=== PATIENT | female | born 1985 | race Caucasian/White ===

== ENCOUNTER → 2019-09-01 | Outpatient (CLI) | payer OTHER ==
[~2019-09-01] MED LIST: CEPH500 PO; MUPI2TC TOP; SULTRIDS PO
== END | disposition home or self-care (01) ==
LOC: LAB 13:11 → LAB SHORT 13:11
DX: Z32.01 Encounter for pregnancy test, result positive (principal)
CPT/HCPCS: 84702

== ENCOUNTER 2020-05-04 21:02 | Inpatient (IN) | payer OTHER ==
[~2020-05-04] VITALS: Ht 154.9 cm; Wt 57.0 kg
[2020-05-04] MEDS ORDERED: PRENATAL TABLE1 EAC2 PO (21:26)
[2020-05-04 21:30] LABS: BASOPHILS ABSOLUTE AUTO 0.03 K/mm3 (0.00-0.23); BASOPHILS PERCENT AUTO 0 % (0-2); EOSINOPHILS ABSOLUTE AUTO 0.05 K/mm3 (0.00-0.68); EOSINOPHILS PERCENT AUTO 1 % (0-6); Hemoglobin 12.6 g/dL (11.5-16.0); IMMATURE GRAN ABSOLUTE AUTO 0.05 K/mm3 (0.00-0.10); IMMATURE GRAN PERCENT AUTO 1 % (0-1); LYMPHOCYTES PERCENT AUTO 22 % (21-46); MONOCYTES ABSOLUTE AUTO 0.66 K/mm3 (0.16-1.47); MONOCYTES PERCENT AUTO 7 % (4-13); Mean Corpuscular HGB Conc 33.2 g/dL (31.5-36.5); Mean Corpuscular Volume 94 fL (80-100); Mean Platelet Volume 10.4 fL (9.1-12.4); NEUTROPHILS ABSOLUTE AUTO 6.87 K/mm3 (1.96-9.15); NEUTROPHILS PERCENT AUTO 70 % (41-73); Platelet Count 247 K/mm3 (150-400); RDW Coefficient Variation 12.7 % (11.7-14.2); Red Blood Cell Count 4.06 M/mm3 (3.80-5.20); White Blood Cell Count 9.86 K/mm3 (4.00-11.30)
--- NOTE | 2020-05-05 15:16 | NUR ---
05/05/20 1516 Laine Magana DELIVERY OF VIABLE FEMALE INFANT T 1502. APGARS 9/9. WEIGHT 2525 GMS. CORD SEGMENT SENT WITH RT FOR GASSES. CORD BLOOD SAMPLE SENT WITH BABY'S RN FOR BLOOD TYPE.
[2020-05-05 15:21] LABS: PO2 Cord - Arterial 20.6 mmHg (16-20); pH Cord - Arterial 7.26 (7.28-7.35)
[2020-05-05 15:23] LABS: PCO2 Cord - Venous 47.3 mmHg (40-50); pH Umbilical Cord - Venous 7.28 (7.26-7.35)
[2020-05-06 05:55] LABS: BASOPHILS ABSOLUTE AUTO 0.03 K/mm3 (0.00-0.23); BASOPHILS PERCENT AUTO 0 % (0-2); EOSINOPHILS ABSOLUTE AUTO 0.05 K/mm3 (0.00-0.68); EOSINOPHILS PERCENT AUTO 0 % (0-6); Hematocrit 23.8 % (33.0-51.0); Hemoglobin 7.8 g/dL (11.5-16.0); IMMATURE GRAN ABSOLUTE AUTO 0.05 K/mm3 (0.00-0.10); IMMATURE GRAN PERCENT AUTO 0 % (0-1); LYMPHOCYTES PERCENT AUTO 14 % (21-46); MONOCYTES ABSOLUTE AUTO 0.72 K/mm3 (0.16-1.47); MONOCYTES PERCENT AUTO 6 % (4-13); Mean Corpuscular HGB 31.5 pg (26.0-34.0); Mean Corpuscular HGB Conc 32.8 g/dL (31.5-36.5); Mean Corpuscular Volume 96 fL (80-100); Mean Platelet Volume 10.5 fL (9.1-12.4); NEUTROPHILS PERCENT AUTO 79 % (41-73); Platelet Count 196 K/mm3 (150-400); RDW Coefficient Variation 12.9 % (11.7-14.2); RDW Standard Deviation 45.1 fL (35.1-46.3); Red Blood Cell Count 2.48 M/mm3 (3.80-5.20); White Blood Cell Count 11.95 K/mm3 (4.00-11.30)
--- NOTE | 2020-05-06 08:02 | NUR ---
PT DISCUSSING OPTION OF GOING HOME TODAY. STATED WE COULD TALK TO WONDER[facility] ABOUT THAT. PT UP AMBULATING AROUND THE ROOM WELL. MICAH SELF AND NB CARE. PT VOIDED
--- NOTE | 2020-05-06 12:00 | NUR ---
[id number] PT AMBULATING OUTSIDE WITH SISTER. MICAH HU.
--- NOTE | 2020-05-06 14:59 | NUR ---
PT R/T ROOM FROM AMBULATING OUTSIDE. PT MICAH WELL. DENIES PAIN.
--- NOTE | 2020-05-06 16:52 | NUR ---
IV D/C, CATH INTACT, SITE CLEAR
[2020-05-06] MEDS ORDERED: Percocet 5-3251 EACH PO (17:09)
[2020-05-06] MEDS ORDERED: IBUP800 PO (17:09)
[2020-05-06] MEDS ORDERED: PROM25 PO (17:10)
--- NOTE | 2020-05-06 17:57 | NUR ---
PT SITTING IN ROOM WAITING FOR CSC TO BE COMPLETE SO THEY CAN GO HOME. NO COMPLAINTS. DR. DARLING HAD REMOVED DRESSING WHEN IN SEEING PT. INCISION SITE CLEAR, STERI STRIPS INTACT.
--- NOTE | 2020-05-06 18:47 | NUR ---
d/c home with baby
== END 2020-05-06 18:50 | disposition home or self-care (01) | DRG 788 ==
LOC: OBS 21:02 → BC 21:03 → OBS 21:09 → BC 21:11
PROVIDERS: ADMIT Obstetrics & Gynecology
PROC: 10D00Z1 Extraction of Products of Conception, Low, Open Approach (ICD-10-PCS; principal; 2020-05-05 14:30)
DX: O48.0 Post-term pregnancy (principal); O76 Abnormality in fetal heart rate and rhythm complicating labor and delivery; O69.81X0 Labor and delivery complicated by cord around neck, without compression, not applicable or unspecified; Z3A.41 41 weeks gestation of pregnancy; Z37.0 Single live birth
CPT/HCPCS: 36415; 82803; 85025; 86850; 86900; 86901; J0690; J1885; J2370; J2405; J2590; J2765; J3010; J7120

== ENCOUNTER 2022-09-11 12:44 | Emergency (ER) | payer OTHER ==
[~2022-09-11] VITALS: Ht 157.5 cm; Wt 45.4 kg
[~2022-09-11 12:44] MED LIST changes: +IBUP800 PO; +PRENATAL TABLE1 EAC2 PO; +PROM25 PO; +Percocet 5-3251 EACH PO
[2022-09-11 13:11] VITALS: BP 139/102
[2022-09-11] MEDS ORDERED: Flonase 0.05% N16 GM (16:11)
== END 2022-09-11 16:28 | disposition home or self-care (01) ==
LOC: ER 12:44
DX: G43.909 Migraine, unspecified, not intractable, without status migrainosus (principal); Z79.899 Other long term (current) drug therapy; F17.210 Nicotine dependence, cigarettes, uncomplicated
CPT/HCPCS: 96374; 96375; 99283-25; J1200; J1885; J2765; J7030